=== PATIENT | female | born 1985 | race Caucasian/White ===

== ENCOUNTER 2020-10-02 11:46 | Emergency (ER) | payer OTHER ==
[2020-10-02 12:25] LABS: Urine Blood Negative (Negative); Urine Glucose Negative (Negative); Urine Protein Trace (Negative); Urine Specific Gravity >=1.030 (1.005-1.030); Urine pH 6.5 (5.0-7.0)
[2020-10-02] MEDS ORDERED: MORPHINE 4 MG/ML SYR ONE ×2 (12:59→13:26)
[2020-10-02] MEDS ORDERED: ONDANSETRON 4 MG/2 ML VIAL ONE (12:59)
[2020-10-02] MEDS ORDERED: NA CHLORIDE 0.9% 1,000 ML ONE (13:00)
[2020-10-02 13:14] LABS: Absolute Lymphocytes (CBC) 1.8 K/uL (0.7-4.9); Basophils % 0.4 % (0-1.3); Hematocrit 37.8 % (36.0-45.0); Lymphocytes % 15.5 % (15.3-44.8); MPV 9.4 fL (7.6-11.3)
[2020-10-02 13:15] LABS: Potassium 3.8 mmol/L (3.5-5.1)
--- NOTE | 2020-10-02 13:52 | RAD REPORT ---
EXAM DESCRIPTION: CT - Abdomen Pelvis W Contrast - 10/02/2020 1:32 pm CLINICAL HISTORY: ABD PAIN COMPARISON: CT ABD PELVIS W CONTRAST dated 02/15/2015 TECHNIQUE: Biphasic, helical CT imaging of the abdomen and pelvis was performed following 100 ml non -ionic IV contrast. No oral contrast administered. All CT scans are performed using dose optimization technique as appropriate and may include automated exposure control or mA/KV adjustment according to patient size. FINDINGS: No suspicious findings in the lung bases. Patient has a pronounced fatty infiltration pattern of the liver. No focal liver lesions seen. Cholec ystectomy clips are present with no abnormal biliary tree dilatation. Pancreas and spleen show no rani picious findings. Renal parenchymal enhancement pattern is somewhat mottled but is symmetric. No hydronephrosis or timoteo d mass lesion. No pyelonephritis or acute parenchymal process. Urinary bladder is almost fully contra cted limiting assessment. No stone gross abnormality seen. No adrenal abnormalities. No dilated bowel loops or bowel wall thickening. Appendectomy clips present. No free air or pneumatos is. No hernia or bulky lymphadenopathy. Normal sized uterus is identified. In the anterior upper pelvis in the midline there is a 10 x 7 cent imeter homogeneous cystic mass present. No fat or calcification component. Along the left lateral inf erior margin there is soft tissue attenuation that may represent the left ovary. In the cul de sac po sterior to the uterus there is a 9 x 7 centimeter thin-walled cystic mass. Trace amount of free fluid is seen. The cul de sac mass has no fat or calcification component. These appear to be discrete cyst ic masses rather than part of dilated fallopian tubes. Bilateral cystadenoma would be the favored too gnosis. Cystadenocarcinoma would be much less likely etiology. Cystic dermoid or teratoma etiologies are possible. Right ovary is difficult to clearly distinguish. No suspicious bony findings. IMPRESSION: Two cystic pelvic masses are present measuring 10 cm in the upper midline pelvis and 9 c m in the cul de sac. No calcification or fat component. Bilateral ovarian cystadenoma would be the favored diagnosis. Trace amount of free fluid is present. No acute GI or finding identifiable. Endovaginal sonography may be helpful to identify the ovaries and confirmed blood flow. Pronounced diffuse fatty infiltration of the liver.
[2020-10-02] MEDS ORDERED: KETOROLAC 30 MG/ML INJ ONE (14:07)
[2020-10-02] MEDS ORDERED: FENTANYL CITR 100 MCG/2 ML ONE (14:57)
--- NOTE | 2020-10-02 15:52 | ER ---
Nurse's Notes [facility] Name: Carmina Sorenson Age: 34 yrs Sex: Female : 1985 Arrival Date: 10/02/2020 Time: 11:47 Bed 20 Private MD: Philippe Banuelos Diagnosis: Other ovarian cysts Presentation: 10/02 12:17 Chief complaint: Patient states: LLQ abd pain that radiates into L flank for 1 day. No ll1 fever or dysuria. Coronavirus screen: Client denies travel out of the [place] in the last 14 days. At this time, the client does not indicate any symptoms associated with coronavirus-19. Ebola Screen: Patient denies travel to an Ebola-affected area in the 21 days before illness onset. Initial Sepsis Screen: Does the patient meet any 2 criteria? No. Patient's initial sepsis screen is negative. Does the patient have a suspected source of infection? Yes: Acute abdominal pain. Risk Assessment: Do you want to hurt yourself or someone else? Patient reports no desire to harm self or others. Onset of symptoms was October 02, 2020. 12:17 Method Of Arrival: Ambulatory ll1 12:17 Acuity: RITESH 3 ll1 Historical: - Allergies: 12:16 No Known Allergies; ll1 - PMHx: 12:16 None; ll1 - PSHx: 12:16 ; Appendectomy; Cholecystectomy; ll1 - Immunization history:: Flu vaccine is not up to date. - Social history:: Smoking status: Patient denies any tobacco usage or history of. Screenin:20 Abuse screen: Denies threats or abuse. Nutritional screening: No deficits noted. rb3 Tuberculosis screening: No symptoms or risk factors identified. Fall Risk None identified. Assessment: 12:20 General: Appears uncomfortable, Behavior is calm, cooperative, Denies fever. Pain: rb3 Complains of pain in left lower quadrant Pain radiates to left flank Pain currently is 10 out of 10 on a pain scale. Neuro: Level of Consciousness is awake, alert, obeys commands, Oriented to person, place, time, situation. Cardiovascular: Patient's skin is warm and dry. Respiratory: Airway is patent Respiratory effort is even, unlabored, Respiratory pattern is regular, symmetrical. : No signs and/or symptoms were reported regarding the genitourinary system. 12:20 GI: Abd is soft Abdomen is tender to palpation Guarding noted. rb3 13:07 Reassessment: Patient appears in no apparent distress at this time. Patient and/or rb3 family updated on plan of care and expected duration. Pain level reassessed. Patient is alert, oriented x 3, equal unlabored respirations, skin warm/dry/pink. 13:23 Reassessment: Pt. went to CT. rb3 13:40 Reassessment: Patient appears in no apparent distress at this time. Patient and/or rb3 family updated on plan of care and expected duration. Pain level reassessed. Patient is alert, oriented x 3, equal unlabored respirations, skin warm/dry/pink. 14:30 Reassessment: Patient appears in no apparent distress at this time. No changes from rb3 previously documented assessment. 15:30 Reassessment: Patient appears in no apparent distress at this time. Patient and/or rb3 family updated on plan of care and expected duration. Pain level reassessed. Patient is alert, oriented x 3, equal unlabored respirations, skin warm/dry/pink. 16:18 Reassessment: Discharge pending due to waiting for a CD of the CT scans. rb3 16:22 Reassessment: Pt. ambulated to the restroom without difficulty. rb3 Vital Signs: 12:17 BP 133 / 84; Pulse 89; Resp 17; Temp 97.4; Pulse Ox 99% ; Weight 104.33 kg; Height 5 ll1 ft. 9 in. (175.26 cm); 14:14 BP 133 / 79; Pulse 82; Resp 19; Pulse Ox 100% ; Pain 9/10; rb3 15:15 BP 120 / 71; Pulse 92; Resp 16; Pulse Ox 100% ; rb3 16:19 BP 118 / 80; Pulse 89; Resp 17; Pulse Ox 98% ; rb3 12:17 Body Mass Index 33.96 (104.33 kg, 175.26 cm) ll1 ED Course: 11:47 Patient arrived in ED. am2 11:47 Philippe Banuelos MD is Private Physician. am2 11:52 Caro Molina FNP-C is [facility]. kb 11:52 Lul Worthington MD is Attending Physician. kb 12:15 Arm band placed on Patient placed in an exam room, on a stretcher. ll1 12:18 Triage completed. ll1 12:20 Patient has correct armband on for positive identification. Bed in low position. Call rb3 light in reach. Side rails up X 1. Pulse ox on. NIBP on. Warm blanket given. 12:27 Nicole Willis, RN is Primary Nurse. rb3 12:47 Initial lab(s) drawn, by me, sent to lab. Inserted saline lock: 20 gauge in right aa5 antecubital area, using aseptic technique. Blood collected. 13:32 CT Abd/Pelvis - IV Contrast Only In Process Unspecified. EDMS 15:51 US Transvaginal Study (Probe) In Process Unspecified. EDMS 15:53 Kay Zazueta MD is Referral Physician. kb 16:21 No provider procedures requiring assistance completed. IV discontinued, intact, rb3 bleeding controlled, No redness/swelling at site. Pressure dressing applied. Administered Medications: 12:48 Drug: Zofran (Ondansetron) 4 mg Route: IVP; Site: right antecubital; aa5 13:07 Follow up: Response: No adverse reaction rb3 12:48 Drug: NS 0.9% 1000 ml Route: IV; Rate: 1000 ml; Site: right antecubital; aa5 13:57 Follow up: IV Status: Completed infusion rb3 12:50 Drug: morphine 4 mg Route: IVP; Site: right antecubital; aa5 13:07 Follow up: Response: No adverse reaction; Pain is unchanged, physician notified rb3 13:10 Drug: morphine 4 mg Route: IVP; Site: right antecubital; rb3 13:30 Follow up: Response: No adverse reaction; Pain is unchanged, physician notified rb3 13:48 Drug: TORadol - (ketorolac) 15 mg Route: IVP; Site: right antecubital; rb3 14:05 Follow up: Response: No adverse reaction; Pain is unchanged, physician notified rb3 14:42 Drug: fentaNYL (PF) 50 mcg {Note: rass 0.} Route: IVP; Site: right antecubital; ll1 15:30 Follow up: Response: No adverse reaction; Pain is decreased rb3 16:05 Drug: [place] (HYDROcodone-acetaminophen) 10 mg-325 mg 1 tabs Route: PO; rb3 16:21 Follow up: Response: No adverse reaction rb3 Outcome: 15:52 Discharge ordered by MD. foy 16:21 Discharged to home ambulatory. rb3 16:21 Condition: stable 16:21 Discharge instructions given to patient, Instructed on discharge instructions, follow up and referral plans. medication usage, Demonstrated understanding of instructions, follow-up care, medications, Prescriptions given X 2. 16:31 Patient left the ED. rb3 Signatures: Dispatcher [employer] EDMS Caro Molina, INCOME TAX RETURN PREPARER-C INCOME TAX RETURN PREPARER-CkKatarina Luna, RN RN aa5 Alise Stoddard am2 Daren Lopez RN RN ll1 Nicole Willis, RN RN rb3 Corrections: (The following items were deleted from the chart) 14:43 14:42 fentaNYL (PF) 50 mcg IVP in right antecubital ll1 ll1
--- NOTE | 2020-10-02 15:53 | EDPHYS ---
Physician Documentation [facility] Name: Carmina Sorenson Age: 34 yrs Sex: Female : 1985 Arrival Date: 10/02/2020 Time: 11:47 Bed 20 Private MD: Philippe Banuelos ED Physician Lul Worthington HPI: 10/02 14:54 This 34 yrs old Female presents to ER via Ambulatory with complaints of kb Abdominal Pain. 14:54 The patient presents with abdominal pain in the left lower quadrant. The symptoms kb radiate to left back. Associated signs and symptoms: Pertinent positives: nausea, Pertinent negatives: fever, vomiting. The symptoms are described as constant. Modifying factors: The symptoms are alleviated by nothing, the symptoms are aggravated by pressure. Severity of pain: At its worst the pain was moderate in the emergency department the pain is unchanged. The patient has not experienced similar symptoms in the past. The patient has not recently seen a physician. 14:54 Onset: The symptoms/episode began/occurred this morning. kb 14:54 Pt reports LLQ pain that radiates to back that began this morning. States she believes kb it is diverticulitis. Reports nausea without vomiting or diarrhea. denies fever. . Historical: - Allergies: 12:16 No Known Allergies; ll1 - PMHx: 12:16 None; ll1 - PSHx: 12:16 ; Appendectomy; Cholecystectomy; ll1 - Immunization history:: Flu vaccine is not up to date. - Social history:: Smoking status: Patient denies any tobacco usage or history of. ROS: 14:53 Constitutional: Negative for fever, chills, and weight loss. kb 14:53 Abdomen/GI: Positive for abdominal pain, nausea, Negative for vomiting, diarrhea. 14:53 All other systems are negative. Exam: 14:53 Constitutional: This is a well developed, well nourished patient who is awake, alert, kb and in no acute distress. Head/Face: Normocephalic, atraumatic. ENT: Moist Mucous membranes Cardiovascular: Regular rate and rhythm with a normal S1 and S2. No gallops, murmurs, or rubs. No pulse deficits. Respiratory: Respirations even and unlabored. No increased work of breathing, no retractions or nasal flaring. Back: No spinal tenderness. No costovertebral tenderness. Full range of motion. Skin: Warm, dry with normal turgor. Normal color. MS/ Extremity: Pulses equal, no cyanosis. Neurovascular intact. Full, normal range of motion. Neuro: Awake and alert, GCS 15, oriented to person, place, time, and situation. Moves all extremities. Normal gait. Psych: Awake, alert, with orientation to person, place and time. Behavior, mood, and affect are within normal limits. 14:53 Abdomen/GI: Inspection: abdomen appears normal, Bowel sounds: normal, Palpation: soft, in all quadrants, moderate abdominal tenderness, in the left lower quadrant. Vital Signs: 12:17 BP 133 / 84; Pulse 89; Resp 17; Temp 97.4; Pulse Ox 99% ; Weight 104.33 kg; Height 5 ll1 ft. 9 in. (175.26 cm); 14:14 BP 133 / 79; Pulse 82; Resp 19; Pulse Ox 100% ; Pain 9/10; rb3 15:15 BP 120 / 71; Pulse 92; Resp 16; Pulse Ox 100% ; rb3 16:19 BP 118 / 80; Pulse 89; Resp 17; Pulse Ox 98% ; rb3 12:17 Body Mass Index 33.96 (104.33 kg, 175.26 cm) ll1 MDM: 12:17 Patient medically screened. 14:53 Data reviewed: vital signs, nurses notes. Data interpreted: Pulse oximetry: on room air kb is 100 %. Interpretation: normal. Counseling: I had a detailed discussion with the patient and/or guardian regarding: the historical points, exam findings, and any diagnostic results supporting the discharge/admit diagnosis, lab results, radiology results, the need for outpatient follow up, an OB/Gyne specialist, to return to the emergency department if symptoms worsen or persist or if there are any questions or concerns that arise at home. 19:51 Data reviewed: I have discussed the patient's presentation/case with the attending Emergency Department Physician;. 10/02 12:19 Order name: Basic Metabolic Panel; Complete Time: 13:32 kb 10/02 12:19 Order name: CBC with Diff; Complete Time: 13:32 kb 10/02 12:19 Order name: CT Abd/Pelvis - IV Contrast Only; Complete Time: 13:56 kb 10/02 12:25 Order name: Urine Dipstick-Ancillary; Complete Time: 12:29 EDMS 10/02 12:32 Order name: Urine --Ancillary (enter results); Complete Time: 14:43 eb 10/02 13:58 Order name: US Transvaginal Study (Probe); Complete Time: 19:54 kb 10/02 12:19 Order name: IV Saline Lock; Complete Time: 12:50 kb 10/02 12:19 Order name: Labs collected and sent; Complete Time: 12:50 kb 10/02 12:19 Order name: Urine Dipstick-Ancillary (obtain specimen); Complete Time: 13:11 kb 10/02 12:19 Order name: Urine Test (obtain specimen); Complete Time: 13:11 kb Administered Medications: 12:48 Drug: Zofran (Ondansetron) 4 mg Route: IVP; Site: right antecubital; aa5 13:07 Follow up: Response: No adverse reaction rb3 12:48 Drug: NS 0.9% 1000 ml Route: IV; Rate: 1000 ml; Site: right antecubital; aa5 13:57 Follow up: IV Status: Completed infusion rb3 12:50 Drug: morphine 4 mg Route: IVP; Site: right antecubital; aa5 13:07 Follow up: Response: No adverse reaction; Pain is unchanged, physician notified rb3 13:10 Drug: morphine 4 mg Route: IVP; Site: right antecubital; rb3 13:30 Follow up: Response: No adverse reaction; Pain is unchanged, physician notified rb3 13:48 Drug: TORadol - (ketorolac) 15 mg Route: IVP; Site: right antecubital; rb3 14:05 Follow up: Response: No adverse reaction; Pain is unchanged, physician notified rb3 14:42 Drug: fentaNYL (PF) 50 mcg {Note: rass 0.} Route: IVP; Site: right antecubital; ll1 15:30 Follow up: Response: No adverse reaction; Pain is decreased rb3 16:05 Drug: [place] (HYDROcodone-acetaminophen) 10 mg-325 mg 1 tabs Route: PO; rb3 16:21 Follow up: Response: No adverse reaction rb3 Disposition: 17:43 Co-signature as Attending Physician, Lul Worthington MD. rn Disposition: 10/02/20 15:52 Discharged to Home. Impression: Other ovarian cysts. - Condition is Stable. - Discharge Instructions: Ovarian Cyst, [id number]. - Prescriptions for Zofran 4 mg Oral Tablet - take 1 tablet by ORAL route every 6 hours As needed; 20 tablet. Diclofenac Sodium 75 mg Oral Tablet, Delayed Release (E.C.) - take 1 tablet by ORAL route 2 times per day As needed; 30 tablet. - Medication Reconciliation Form, Thank You Letter, Antibiotic Education, Prescription Opioid Use form. - Follow up: Emergency Department; When: As needed; Reason: Worsening of condition. Follow up: Private Physician; When: 2 - 3 days; Reason: Recheck today's complaints, Continuance of care, Re-evaluation by your physician. Follow up: Kay Zazueta MD; When: 2 - 3 days; Reason: Recheck today's complaints. Signatures: Dispatcher [employer] EDMS Caro Molina, ICEBOX WORKER-C ICEBOX WORKER-Ckb Lul Worthington MD MD rn Calderon, Audri RN RN aa5 Daren Lopez RN RN ll1 Nicole Willis RN RN rb3 Corrections: (The following items were deleted from the chart) 15:53 15:52 10/02/2020 15:52 Discharged to Home. Impression: Other ovarian cysts. Condition kb is Stable. Forms are Medication Reconciliation Form, Thank You Letter, Antibiotic Education, Prescription Opioid Use. Follow up: Emergency Department; When: As needed; Reason: Worsening of condition. Follow up: Private Physician; When: 2 - 3 days; Reason: Recheck today's complaints, Continuance of care, Re-evaluation by your physician. kb 16:31 15:53 10/02/2020 15:52 Discharged to Home. Impression: Other ovarian cysts. Condition rb3 is Stable. Discharge Instructions: Ovarian Cyst, [id number]. Prescriptions for Zofran 4 mg Oral Tablet - take 1 tablet by ORAL route every 6 hours As needed; 20 tablet, Diclofenac Sodium 75 mg Oral Tablet, Delayed Release (E.C.) - take 1 tablet by ORAL route 2 times per day As needed; 30 tablet. and Forms are Medication Reconciliation Form, Thank You Letter, Antibiotic Education, Prescription Opioid Use. Follow up: Emergency Department; When: As needed; Reason: Worsening of condition. Follow up: Private Physician; When: 2 - 3 days; Reason: Recheck today's complaints, Continuance of care, Re-evaluation by your physician. Follow up: Kay Zazueta; When: 2 - 3 days; Reason: Recheck today's complaints. kb 20:08 14:54 Onset: The symptoms/episode began/occurred this morning, kb kb 20: 14:54 Onset: The symptoms/episode began/occurred this morning, at 09:00, kb kb
[2020-10-02] MEDS ORDERED: HYDROCODONE/APAP 10/325 TAB ONE (16:19)
[2020-10-02 16:39] VITALS: TEMP 97.4
[2020-10-02 16:43] VITALS: BP 118/80; O2SAT 98
--- NOTE | 2020-10-02 16:52 | RAD REPORT ---
EXAM DESCRIPTION: US - Transvaginal Study Probe - 10/02/2020 3:51 pm CLINICAL HISTORY: ABD PAIN COMPARISON: Abdomen Pelvis W Contrast dated 10/02/2020 TECHNIQUE: Endovaginal sonography was performed. FINDINGS: Approximately 10 x 7 cm cystic mass is present in the superior midline pelvis is correlate to 1 of the the masses seen on CT imaging. A second 9 centimeter cystic mass is present at cul de sa c as the second correlate. Both show low-level internal echoes. Right ovary is identified with blood flow within stroma. Left ovary could not be visualized due to roma wel the obstructing mass. No structures seen felt to be tortuous or dilated fallopian tube. No uterin e abnormality seen. Bilateral cystadenoma remains the primary differential consideration. Given the echotexture, endometr iomas would be possible. Cystadenocarcinoma unlikely but not excluded. IMPRESSION: Two large non simple cyst masses of the pelvis are present as correlates to the CT findi ng. Right ovary is identified with normal stroma blood flow. Left ovary was obscured. Cystadenoma remains primary differential consideration. Endometrioma etiology is possible. Cystadenoc arcinoma is unlikely but not excluded.
== END 2020-10-02 16:31 | disposition home or self-care (01) ==
LOC: ER 11:46
DX: N83.292 Other ovarian cyst, left side (principal)
CPT/HCPCS: 96361; 85025; 80048; 36415; 81025; 81003; 74177; 76830; 96375; 96374; 99284; Q9967; J3010; J7030; J2405